=== PATIENT | male | born 2000 | race Caucasian/White ===

== ENCOUNTER 2025-05-18 15:53 | Emergency (ER) | payer SELFPAY ==
[~2025-05-18] VITALS: Ht 182.9 cm; Wt 75.0 kg
[2025-05-18 16:15] VITALS: BP 114/68; PULSE 80; RESP 16; TEMP 98.2; O2SAT 97
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
== END 2025-05-18 17:59 | disposition home or self-care (01) ==
LOC: ER 15:54
DX: S09.8XXA Other specified injuries of head, initial encounter (principal); Y04.0XXA Assault by unarmed brawl or fight, initial encounter; Y93.89 Activity, other specified; Y92.89 Other specified places as the place of occurrence of the external cause; Y99.8 Other external cause status
CPT/HCPCS: 99282; 99283